=== PATIENT | female | born 1940 | race Caucasian/White ===

== ENCOUNTER → 2020-10-17 | Outpatient (CLI) | payer OTHER ==
[~2020-10-17] MED LIST: AMLODIPINE BESYL5 MG PO; ASPIRIN CHEWABL81 MG PO; ASPIRIN EC81 MG PO; ATORVASTATIN CA20 MG PO; BUMETANIDE0.5 MG PO; CEFUROXIME250 MG PO; CELEBREX 200MG200 MG PO; CLOPIDOGREL75 MG PO; CYANOCOBAL1000 MCG/1 INJ; GLUCOPHAGE1000 MG PO; GLUCOSAMINE HC500 MG PO; GLUCOTROL5 MG PO; HUMALOG 10100 UNITS/ SC; JANUVIA25 MG PO; LANTUS INS100 UTS/M1 SC; LIORESAL TAB 1010 MG PO; LOPRESSOR 25 MG25 MG PO; METFORMIN HCL1000 M1 PO; MYCOSTATIN OINT15 GM TOP; MYRBETRIQ25 MG PO; MYRBETRIQ50 MG PO; NEURONTIN 100100 MG PO; OMEPRAZOLE20 MG PO; PERCOCET 5-3251 EACH PO; POTASSIUM CHLO10 ME2 PO; TRIBENZOR 40-11 EAC1 PO; ULTRAM50 MG PO; VITAMIN D21250 MCG PO; ZETIA 10 MG TAB10 MG PO; ZYVOX PO
== END ==
LOC: LAB 16:23
PROVIDERS: Internal Medicine Nephrology
DX: N18.9 Chronic kidney disease, unspecified (principal)
CPT/HCPCS: 36415; 80053

== ENCOUNTER → 2020-10-29 | Outpatient (CLI) | payer MEDICARE, OTHER | LOC: WCC 13:49 | DX: E11.622 Type 2 diabetes mellitus with other skin ulcer (principal); E11.40 Type 2 diabetes mellitus with diabetic neuropathy, unspecified; L03.115 Cellulitis of right lower limb; L03.116 Cellulitis of left lower limb; I87.323 Chronic venous hypertension (idiopathic) with inflammation of bilateral lower extremity; I10 Essential (primary) hypertension; E66.9 Obesity, unspecified; M19.90 Unspecified osteoarthritis, unspecified site; Z79.4 Long term (current) use of insulin; Z68.28 Body mass index [BMI] 28.0-28.9, adult | CPT/HCPCS: G0463 ==

== ENCOUNTER → 2020-10-31 | Outpatient (CLI) | payer MEDICARE, OTHER | LOC: WCC 14:35 | DX: E11.622 Type 2 diabetes mellitus with other skin ulcer (principal); L97.821 Non-pressure chronic ulcer of other part of left lower leg limited to breakdown of skin; E11.40 Type 2 diabetes mellitus with diabetic neuropathy, unspecified; I10 Essential (primary) hypertension | CPT/HCPCS: G0463 ==

== ENCOUNTER → 2020-11-06 | Outpatient (CLI) | payer MEDICARE, OTHER | LOC: WCC 14:21 | DX: E11.69 Type 2 diabetes mellitus with other specified complication (principal); I87.323 Chronic venous hypertension (idiopathic) with inflammation of bilateral lower extremity; E66.9 Obesity, unspecified; I10 Essential (primary) hypertension; E11.40 Type 2 diabetes mellitus with diabetic neuropathy, unspecified; L03.116 Cellulitis of left lower limb; L03.115 Cellulitis of right lower limb | CPT/HCPCS: 97597; 97598 ==

== ENCOUNTER → 2020-11-28 | Outpatient (CLI) | payer OTHER | LOC: WCC 14:58 | DX: E11.622 Type 2 diabetes mellitus with other skin ulcer (principal); I87.323 Chronic venous hypertension (idiopathic) with inflammation of bilateral lower extremity; E11.40 Type 2 diabetes mellitus with diabetic neuropathy, unspecified; I10 Essential (primary) hypertension; E66.9 Obesity, unspecified; L03.116 Cellulitis of left lower limb; L03.115 Cellulitis of right lower limb | CPT/HCPCS: 97597 ==

== ENCOUNTER 2020-12-01 11:02 | Inpatient (IN) | payer MEDICARE, OTHER ==
[~2020-12-01] VITALS: Ht 163 cm; Wt 70.7 kg
[~2020-12-01 11:02] MED LIST changes: -LOPRESSOR 25 MG25 MG PO; -METFORMIN HCL1000 M1 PO
[2020-12-01 11:41] LABS: HEMOGLOBIN 12.3 gm/dl (12.3-15.3); RED BLOOD COUNT 4.7 M/UL (4.00-5.10); WHITE BLOOD COUNT 7.7 K/UL (4.5-11.0)
[2020-12-01 12:01] LABS: BUN/CREATININE RATIO 40 (0-10)
[2020-12-02 04:52] LABS: HEMOGLOBIN 11.3 gm/dl (12.3-15.3); RED BLOOD COUNT 4.46 M/UL (4.00-5.10); WHITE BLOOD COUNT 6.7 K/UL (4.5-11.0)
[2020-12-02] MEDS ORDERED: LOPRESSOR 25 MG25 MG PO (08:00)
[2020-12-02] MEDS ORDERED: LIORESAL TAB 1010 MG PO (08:05)
[2020-12-03 12:22] LABS: HEMOGLOBIN 11.4 gm/dl (12.3-15.3); RED BLOOD COUNT 4.37 M/UL (4.00-5.10)
[2020-12-03 12:44] LABS: WHITE BLOOD COUNT 9.6 K/UL (4.5-11.0)
[2020-12-04 05:53] LABS: HEMOGLOBIN 12.9 gm/dl (12.3-15.3); RED BLOOD COUNT 4.86 M/UL (4.00-5.10); WHITE BLOOD COUNT 8.3 K/UL (4.5-11.0)
[2020-12-05 03:20] LABS: HEMOGLOBIN 13.3 gm/dl (12.3-15.3); RED BLOOD COUNT 5.13 M/UL (4.00-5.10); WHITE BLOOD COUNT 9.2 K/UL (4.5-11.0)
--- NOTE | 2020-12-05 06:24 | NUR ---
PLACED DOBHOFF NG TUBE PER DOCTORS ORDERS WHILE PT IS NPO. VERIFIED WITH CHAPLAINCY THAT THE SKILL IS WITHIN OUR SKILLS. TUBE PLACED WITH NO DIFFICULITY, WAITING ON CHEST XRAY TO RETURN CONFIRMING PLACEMENT. PT IS STABLE WITH O2 SATURATION 95% ON BIPAP, PT BEEN THROUGHOUT THE NIGHT
[2020-12-06 02:26] LABS: HEMOGLOBIN 14.3 gm/dl (12.3-15.3); RED BLOOD COUNT 5.48 M/UL (4.00-5.10)
[2020-12-06 02:31] LABS: WHITE BLOOD COUNT 6.7 K/UL (4.5-11.0)
[2020-12-07 03:06] LABS: HEMOGLOBIN 13.7 gm/dl (12.3-15.3); RED BLOOD COUNT 5.38 M/UL (4.00-5.10); WHITE BLOOD COUNT 8.1 K/UL (4.5-11.0)
[2020-12-08 04:53] LABS: RED BLOOD COUNT 5.46 M/UL (4.00-5.10)
[2020-12-08 05:01] LABS: WHITE BLOOD COUNT 10.7 K/UL (4.5-11.0)
[2020-12-09 03:57] LABS: HEMOGLOBIN 12.6 gm/dl (12.3-15.3); RED BLOOD COUNT 4.93 M/UL (4.00-5.10)
[2020-12-09 03:58] LABS: WHITE BLOOD COUNT 7.9 K/UL (4.5-11.0)
[2020-12-11 04:45] LABS: HEMOGLOBIN 11.8 gm/dl (12.3-15.3); RED BLOOD COUNT 4.68 M/UL (4.00-5.10); WHITE BLOOD COUNT 6.8 K/UL (4.5-11.0)
[2020-12-12 03:57] LABS: HEMOGLOBIN 12.4 gm/dl (12.3-15.3); RED BLOOD COUNT 4.82 M/UL (4.00-5.10); WHITE BLOOD COUNT 6.8 K/UL (4.5-11.0)
[2020-12-13 04:09] LABS: HEMOGLOBIN 12.5 gm/dl (12.3-15.3)
[2020-12-13 04:11] LABS: WHITE BLOOD COUNT 8.9 K/UL (4.5-11.0)
[2020-12-14 03:48] LABS: HEMOGLOBIN 12.9 gm/dl (12.3-15.3); WHITE BLOOD COUNT 10.3 K/UL (4.5-11.0)
[2020-12-15 04:22] LABS: HEMOGLOBIN 12.7 gm/dl (12.3-15.3); RED BLOOD COUNT 4.93 M/UL (4.00-5.10); WHITE BLOOD COUNT 11.5 K/UL (4.5-11.0)
[2020-12-16 02:20] LABS: HEMOGLOBIN 13.2 gm/dl (12.3-15.3); RED BLOOD COUNT 5.08 M/UL (4.00-5.10); WHITE BLOOD COUNT 10.1 K/UL (4.5-11.0)
[2020-12-16] MEDS ORDERED: METFORMIN HCL1000 M1 PO (09:53)
--- NOTE | 2020-12-17 01:36 | NUR ---
PATIENT BEDDING AND GOWN CHANGED, BUTTOCKS CLEANED WITH IRAJ SPRAY AND CLOTHS, ALLEVYN PLACED ON WOUNDS TO BUTTOCKS. ANTI-FUNGAL OINTMENT APPLIED UNDER ABDOMINAL SKIN FOLDS, BREASTS AND TO GROIN. PATIENT TOLERATED WELL. PATIENT HAD LARGE, SOFT BOWEL MOVEMENT DURING CHANGING. ATTEMPTED TO CHANGE DRESSING TO LEFT WRIST IV, WENT TO FLUSH AND IV WAS INFILTRATED. IV REMOVED. RASHAUN OVIEDO, RESOURCE NURSE, IS CURRENTLY ATTEMPTING TO PLACE NEW IV AT THIS TIME.
--- NOTE | 2020-12-17 14:47 | NUR ---
ROOM AIR OXYGEN SATURATION 89%
[2020-12-21 07:40] LABS: RED BLOOD COUNT 5.57 M/UL (4.00-5.10); WHITE BLOOD COUNT 12.5 K/UL (4.5-11.0)
--- NOTE | 2020-12-21 22:00 | NUR ---
PATIENT BS 53 ON INITIAL CHECK AND 59 ON SECOND CHECK TO SEE IF ACCURATE. JUICE, PEANUT BUTTER, AND PUDDING GIVEN, BUT PATIENT DID NOT TOLERATE WELL. SHE IS NOT SYMPTOMATIC WITH HER LOW BS. WILL RECHECK.
--- NOTE | 2020-12-21 23:05 | NUR ---
PATIENT BS ONLY 63 ON RECHECK. PATIENT REMAINS ASYMPTOMATIC. DR MI ON FLOOR AND NOTIFIED. 1 AMP OF D50 ADMINISTERED. WILL FOLLOW UP FOR EFFECTIVENESS.
--- NOTE | 2020-12-22 01:10 | NUR ---
PATIENT BS NOW 102. PATIENT REMAINS STABLE. WILL CONTINUE TO MONITOR AND ENCOURAGE PO WHEN AWAKE.
[2020-12-22 08:38] LABS: HEMOGLOBIN 15.5 gm/dl (12.3-15.3); RED BLOOD COUNT 5.74 M/UL (4.00-5.10)
[2020-12-22 08:43] LABS: WHITE BLOOD COUNT 19.2 K/UL (4.5-11.0)
--- NOTE | 2020-12-23 14:37 | NUR ---
CALLED PROVIDER AND LEFT MESSAGE. PATIENT O2 HAS BEEN INCREASED FROM 2 LITERS TO 12 LITERS AND IS TACKY IN THE 105-120 RANGE. NO RESPONSE AT THIS TIME FROM PROVIDER.
[2020-12-23 15:55] LABS: WHITE BLOOD COUNT 16.1 K/UL (4.5-11.0)
[2020-12-23 16:21] LABS: HEMOGLOBIN 11.4 gm/dl (12.3-15.3); RED BLOOD COUNT 4.31 M/UL (4.00-5.10)
--- NOTE | 2020-12-23 19:49 | NUR ---
PATIENT AT AROUND 1400 HAD AN O2 SAT IN UPPER 80'S. TELEMETRY CALLED TO INFORM OF PATIENT'S DESAT. RESPIRATORY WAS ALREADY IN ROOM WORKING WITH PATIENT. PATIENTS 02 WAS INCREASED GRADUALLY BY RESPIRATORY FROM 2 LITERS TO 12 LITERS. PATIENT ALSO WAS TACHYCARDIC IN THE 110S TO 120S. PROVIDER WAS CALLED TWICE BEFORE BEING REACHED AND INFORMED OF THE PATIENTS CONDITION. ORDERS WERE GIVEN FOR STAT CHEST XRAY LABS AND ABGS. PROVIDER CAME TO SEE PATIENT. WHILE WAITING ON RESULTS OF TESTS PATIENTS CONDITION WAS STABLE, BUT SHE THEN TO COMPLAIN OF NAUSEA AND CHEST PAIN. PROVIDER WAS CALLED AND AN ORDER FOR SUBLINGUWAL NITRO WAS GIVEN WELL EKG AND LABS FOR TROPONINS. PATIENTS BP DROPPED DOWN TO 60'S OVER 40'S AND PROVIDER WAS AGAIN CALLED AND ORDERED A 500CC BOLUS AND INQUIRED ABOUT LEVAFED. ONCE BOLUS WAS STARTED AND PATIENT WAS MORE STABLE REPORT WAS CALLED MEDS, AND CHART ALONG WITH RESPIRATORY AND O2 AND PATIENT WAS MOVED TO ICU.
[2020-12-25 05:19] LABS: HEMOGLOBIN 10.5 gm/dl (12.3-15.3); RED BLOOD COUNT 3.99 M/UL (4.00-5.10)
[2020-12-25 05:33] LABS: WHITE BLOOD COUNT 8.9 K/UL (4.5-11.0)
[2020-12-26 04:57] LABS: HEMOGLOBIN 8.5 gm/dl (12.3-15.3); WHITE BLOOD COUNT 6.8 K/UL (4.5-11.0)
[2020-12-26 04:58] LABS: RED BLOOD COUNT 3.28 M/UL (4.00-5.10)
--- NOTE | 2020-12-27 12:40 | NUR ---
ATTEMPTED TO INSERT DOBHOFF PER DR SCHAFER ORDER. PT REFUSED AFTER ATTEMPT WAS STARTED. PATIENT IS ALERT AND ORIENTED AND SAYS SHE MAY BE WILLING TO TRY AGAIN LATER.
[2020-12-29 05:16] LABS: RED BLOOD COUNT 1.46 M/UL (4.00-5.10); WHITE BLOOD COUNT 10.2 K/UL (4.5-11.0)
[2020-12-29 05:18] LABS: HEMOGLOBIN 4.1 gm/dl (12.3-15.3)
[2020-12-29 16:04] LABS: HEMOGLOBIN 8.6 gm/dl (12.3-15.3); RED BLOOD COUNT 2.9 M/UL (4.00-5.10); WHITE BLOOD COUNT 7.6 K/UL (4.5-11.0)
[2020-12-30 04:24] LABS: HEMOGLOBIN 9.3 gm/dl (12.3-15.3)
[2020-12-30 04:52] LABS: RED BLOOD COUNT 3.2 M/UL (4.00-5.10); WHITE BLOOD COUNT 11.2 K/UL (4.5-11.0)
[2020-12-31 08:47] LABS: HEMOGLOBIN 9.4 gm/dl (12.3-15.3); RED BLOOD COUNT 3.19 M/UL (4.00-5.10); WHITE BLOOD COUNT 10.5 K/UL (4.5-11.0)
[2021-01-01 04:29] LABS: HEMOGLOBIN 9.3 gm/dl (12.3-15.3); RED BLOOD COUNT 3.14 M/UL (4.00-5.10); WHITE BLOOD COUNT 8.5 K/UL (4.5-11.0)
--- NOTE | 2021-01-01 13:39 | NUR ---
PT FACE AND NECK NOTED TO BE SWELLING. BLOOD SUGAR IS 434. DR. TANNER ON UNIT AND NOTIFIED OF CHANGES. FAMILY DISCUSSING TERMINAL EXTUBATION AT THIS TIME. HAVE NOTIFIED POA OF CHANGES AND REQUESTED HE RETURN WITH HIS FAMILY TO THE HOSPITAL. PER MY DISCUSSION WITH THE POA PIEDAD WILL HOLD OFF ON GIVING MEDICATIONS AT THIS TIME. WILL OBTAIN CHEST XRAY TO DETERMINE IF PATIENT HAS DEVELOPED A PNEUMOTHORAX. WILL CONTINUE TO MONITOR CLOSELY.
--- NOTE | 2021-01-02 16:57 | NUR ---
PATIENT NOTED TO HAVE A TOD OF 1630 ON 01/02/2021. JOSEPH AND FAMILY CONTACTED. JOSEPH ID NUMBER [id number]. JOSEPH STATES THAT PATIENT IS RULED OUT FOR TISSUE DONATION AND THAT WE ARE FREE TO RELEASE TO THE HOME.
--- NOTE | 2021-01-02 17:01 | NUR ---
CALLED [facility] AT THIS TIME AND SPOKE WITH MEAGAN. SHE STATES THAT THEY WILL HAVE SOMEONE OVER TO BUSINESS ANALYST SALES OPERATIONS THE PATIENT.
[2021-01-02 17:11] LABS: HEPARIN INDUCED PLATELET AB 0.085 OD (0.000-0.400)
== END 2021-01-02 16:30 | disposition expired | DRG 208 ==
LOC: ER1 11:02 → PROG CARE 14:38 → CDU 14:38 → MED SURG 4 14:38 → CCU 14:38 → PROG CARE 17:55 → MED SURG 4 12-17 16:34 → CCU 12-23 16:44 → MED SURG 4 01-02 10:51
PROVIDERS: Emergency Medicine; Family Medicine; Internal Medicine; Internal Medicine Nephrology; Internal Medicine Pulmonary Disease; ADMIT Internal Medicine
PROC: 8E0ZXY6 Isolation (ICD-10-PCS; 2020-12-01)
PROC: XW033E5 Introduction of Remdesivir Anti-infective into Peripheral Vein, Percutaneous Approach, New Technology Group 5 (ICD-10-PCS; 2020-12-02)
PROC: 3E033XZ Introduction of Vasopressor into Peripheral Vein, Percutaneous Approach (ICD-10-PCS; 2020-12-23)
PROC: B24BZZZ Ultrasonography of Heart with Aorta (ICD-10-PCS; 2020-12-25)
PROC: 5A12012 Performance of Cardiac Output, Single, Manual (ICD-10-PCS; principal; 2020-12-29)
PROC: 5A1945Z Respiratory Ventilation, 24-96 Consecutive Hours (ICD-10-PCS; 2020-12-29)
PROC: 02HV33Z Insertion of Infusion Device into Superior Vena Cava, Percutaneous Approach (ICD-10-PCS; 2020-12-29)
PROC: 30233N1 Transfusion of Nonautologous Red Blood Cells into Peripheral Vein, Percutaneous Approach (ICD-10-PCS; 2020-12-29)
PROC: 0BH17EZ Insertion of Endotracheal Airway into Trachea, Via Natural or Artificial Opening (ICD-10-PCS; 2020-12-29)
DX: U07.1 COVID-19 (principal); J12.82 Pneumonia due to coronavirus disease 2019; J96.01 Acute respiratory failure with hypoxia; J15.8 Pneumonia due to other specified bacteria; R53.2 Functional quadriplegia; R65.21 Severe sepsis with septic shock; K72.00 Acute and subacute hepatic failure without coma; A41.50 Gram-negative sepsis, unspecified; N17.0 Acute kidney failure with tubular necrosis; I21.4 Non-ST elevation (NSTEMI) myocardial infarction; D62 Acute posthemorrhagic anemia; N30.00 Acute cystitis without hematuria; E87.0 Hyperosmolality and hypernatremia; G93.49 Other encephalopathy; E87.2 Acidosis; K92.2 Gastrointestinal hemorrhage, unspecified; E87.1 Hypo-osmolality and hyponatremia; I42.9 Cardiomyopathy, unspecified; I46.9 Cardiac arrest, cause unspecified; B96.89 Other specified bacterial agents as the cause of diseases classified elsewhere; Z51.5 Encounter for palliative care; Z66 Do not resuscitate; N18.30 Chronic kidney disease, stage 3 unspecified; I12.9 Hypertensive chronic kidney disease with stage 1 through stage 4 chronic kidney disease, or unspecified chronic kidney disease; E11.51 Type 2 diabetes mellitus with diabetic peripheral angiopathy without gangrene; E11.22 Type 2 diabetes mellitus with diabetic chronic kidney disease; B88.8 Other specified infestations; E11.65 Type 2 diabetes mellitus with hyperglycemia; I48.91 Unspecified atrial fibrillation; L89.150 Pressure ulcer of sacral region, unstageable; L89.320 Pressure ulcer of left buttock, unstageable; E87.6 Hypokalemia; L97.509 Non-pressure chronic ulcer of other part of unspecified foot with unspecified severity; N76.6 Ulceration of vulva; I87.8 Other specified disorders of veins; E11.621 Type 2 diabetes mellitus with foot ulcer; E66.9 Obesity, unspecified; E78.5 Hyperlipidemia, unspecified; D69.6 Thrombocytopenia, unspecified; M19.90 Unspecified osteoarthritis, unspecified site; Z90.710 Acquired absence of both cervix and uterus; Z98.890 Other specified postprocedural states; Z79.82 Long term (current) use of aspirin; Z68.28 Body mass index [BMI] 28.0-28.9, adult
CPT/HCPCS: ECHO; 0240U; 31500; 36415; 36430; 36600; 51702; 70450; 71045; 71250; 80048; 80053; 80202; 81001; 82140; 82150; 82270; 82550; 82553; 82570; 82803; 82962; 83036; 83605; 83615; 83690; 83735; 83874; 83880; 84100; 84132; 84133; 84156; 84300; 84484; 85007; 85018; 85025; 85027; 85379; 85384; 85610; 85730; 86140; 86850; 86900; 86901; 86920; 86927; 87040; 87045; 87046; 87070; 87077; 87081; 87086; 87186; 87205; 89050; 92526; 92610; 92950; 93005; 93306; 94002; 94003; 94640; 94660; 94664; 94760; 96365; 96367; 96375; 97110; 97162; 97166; 97530; 97530-GP-CQ; 99285; A6212; C1751; C9113; J0171; J0461; J0692; J0696; J1100; J1160; J1644; J1940; J2185; J2250; J2270; J2310; J2370; J2405; J2543; J2550; J2704; J2920; J3370; J3430; J3480; J7030; J7050; J7070; P9016; P9017; P9047